=== PATIENT | female | born 1960 | race Caucasian/White ===

== ENCOUNTER 2018-03-28 22:27 | Inpatient (IN) | payer BC ==
[2018-03-28 22:57] LABS: #Basophils 0.1 thou/uL (0.0-0.2); #Eosinphils 0.1 thou/uL (0.0-0.7); #Lymphocytes 3.2 thou/uL (1.20-3.40); #Monocytes 0.5 thou/uL (0.11-0.59); #Neutrophils 3.8 thou/uL (1.40-6.50); %Basophils 1.3 % (0.0-1.0); %Eosinophils 1.7 % (0.0-10.0); %Lymphocytes 41.4 % (21.0-51.0); %Monocytes 6.5 % (0.0-10.0); %Neutrophils 49.2 % (42.0-75.0); Hemoglobin 11.7 g/dL (12.0-16.0); Mean Corpuscular HGB CONC 34.6 g/dL (32.0-36.0); Mean Corpuscular Volume 98.3 fL (78.0-98.0); Mean Platelet Volume 8.1 fL (7.4-10.4); Platelet Count 185 thou/uL (130-400); RBC Distribution Width 11.9 % (11.5-14.5); Red Blood Cell (RBC) Count 3.44 mill/uL (4.20-5.40); White Blood Cell (WBC) Count 7.7 thou/uL (4.8-10.8)
[2018-03-28 23:19] LABS: ALT (SGPT) 14 U/L (8-55); AST (SGOT) 25 U/L (5-34); Alkaline Phosphatase 52 U/L (40-150); Anion Gap 12 mmol/L (10-20); BUN (Urea Nitrogen) 10 mg/dL (9.8-20.1); Bilirubin, Total 0.5 mg/dL (0.2-1.2); Calc. Creatinine Clearance 0 mL/min (70-130); Calcium 8.9 mg/dL (7.8-10.44); Carbon Dioxide 23 mmol/L (22-29); Chloride 90 mmol/L (98-107); Estimated GFR-MDRD 83; Globulin 2.9 g/dL (2.4-3.5); Glucose 91 mg/dL (70-105); Potassium 3.9 mmol/L (3.5-5.1); Protein, Total 6.9 g/dL (6.0-8.3); Sodium 121 mmol/L (136-145)
[2018-03-28 23:24] LABS: CKMB 2.6 ng/mL (0-6.6); Troponin I Less than 0.010 ng/mL (< 0.028)
--- NOTE | 2018-03-28 23:45 | RAD ---
PA AND LATERAL CHEST X-RAY: 03/28/18 HISTORY: Chest pain. Patient states left sided rib pain. COMPARISON: 09/10/08. FINDINGS: The cardiac silhouette and pulmonary vasculature are within normal limits. The lungs are expanded but clear. There has been no interval change compared to the prior study. IMPRESSION: No acute cardiopulmonary process. POS: [facility]
[2018-03-28] MEDS ORDERED: Dexamethasone 4 mg/ml Vial ONE (23:53)
[2018-03-29] MEDS ORDERED: Fentanyl 100 MCG/2 ML VIAL ONE (00:34)
[2018-03-29 01:36] VITALS: BMI 20.7
[2018-03-29] MEDS ORDERED: Ondansetron ODT 4 MG TAB SL PRN (01:50)
[2018-03-29] MEDS ORDERED: Ondansetron HCl/PF 4 MG/2 ML Vial IVP PRN (01:50)
[2018-03-29] MEDS ORDERED: Sodium Chloride 0.9% 1,000 ML IV SCH (02:00)
[2018-03-29 02:45] LABS: Troponin I Less than 0.010 ng/mL (< 0.028)
[2018-03-29] MEDS ORDERED: Pepto Bismol Chew TAB PO PRN (02:47)
[2018-03-29] MEDS ORDERED: Milk Of Magnesia 30 ML UDCUP PO PRN (02:47)
[2018-03-29] MEDS ORDERED: Senokot 8.6 MG TAB PO PRN (02:47)
[2018-03-29] MEDS: Ketorolac Tromethamine 30 MG/ML VIAL IVP PRN ×3 (02:47→21:07)
[2018-03-29] MEDS ORDERED: Bisacodyl 5 MG TAB PO PRN (02:47)
[2018-03-29] MEDS ORDERED: Guaifenesin DM 100-10/5 ML UDCUP PO PRN (02:47)
[2018-03-29] MEDS ORDERED: Enoxaparin Sodium 40 MG/0.4 ML SYRINGE SC SCH (03:00)
[2018-03-29 06:38] LABS: Anion Gap 11 mmol/L (10-20); BUN (Urea Nitrogen) 9 mg/dL (9.8-20.1); Calc. Creatinine Clearance 93 mL/min (70-130); Carbon Dioxide 24 mmol/L (22-29); Chloride 96 mmol/L (98-107); Estimated GFR-MDRD 88; Glucose 125 mg/dL (70-105); Sodium 127 mmol/L (136-145)
[2018-03-29 06:39] LABS: Troponin I Less than 0.010 ng/mL (< 0.028)
[2018-03-29 07:04] LABS: Potassium 4.2 mmol/L (3.5-5.1)
[2018-03-29] MEDS ORDERED: Aspirin 325 MG TAB PO SCH (09:00)
[2018-03-29] MEDS: Famotidine/PF 20 mg/2ml Vial SLOW IVP SCH ×2 (09:09→21:07)
--- NOTE | 2018-03-29 09:09 | HP ---
CHIEF COMPLAINT: Left chest pain. HISTORIAN: The patient, rekha. HISTORY OF PRESENT ILLNESS: This is a 57-year-old white female with a past medical history of umbili bear hernia, thoracic bulging disks, GERD, presenting with left-sided lower rib pain that radiates to the patient's back. Per patient, this pain has always been there and has recurrent pain which progre ssively got worse this morning. The patient states that she has history of chronic left rib pain for which she is seeing a pain doctor for. Per the patient, she was given a lot of different treatments . She received nerve blocks and numerous pain medications which alleviated her pain for some time an d the patient states that she lost her insurance and due to that she never went back to her pain medi cation doctor and now she is starting to get the pain again. The patient describes the pain as sharp , constant. The patient received [place] which helped a little bit with the pain. The patient has tri ed a little bit of Tylenol as well. On the pain scale the patient rated the pain as 9/10. REVIEW OF SYSTEMS: The patient states that she has positive left-sided rib pain which is reproducibl e, back pain. Otherwise, as documented in the HPI. All other systems are reviewed and are negative. PAST MEDICAL HISTORY: Umbilical hernia, PVCs, PACs, 3 thoracic bulging disks, gastroesophageal reflu x disease, hypertension. FAMILY HISTORY: Reviewed and noncontributory to this hospital visit. PAST SURGICAL HISTORY: Breast augmentation and implant removal, carpal tunnel surgery, cholecystecto my, hysterectomy. SOCIAL HISTORY: The patient lives at home. Denies tobacco use and alcohol use. Denies any other il licit drug use. PSYCHIATRIC HISTORY: There is no previous psychiatric history. ALLERGIES: Patient is allergic to BYSTOLIC. The patient does not know how she feels when she takes Bystolic because she states that the allergic reaction was a long time ago. CURRENT MEDICATIONS: 1. Atenolol 25 mg b.i.d. 2. Aspirin 81 mg oral daily. 3. Omeprazole 40 mg daily. 4. Bentyl 20 mg t.i.d. 5. Lexapro 10 mg oral daily. 6. Xanax 0.5 mg t.i.d. PHYSICAL EXAMINATION: VITAL SIGNS: Blood pressure 162/85, pulse 58, respiratory rate 18, temperature is 98, O2 sat 100 on room air. GENERAL APPEARANCE: The patient is sitting in bed, does not appear in any distress. Patient is spea franc in full sentences. Denies any pain at the time. HEENT: Normocephalic, atraumatic. Pupils equally round and reactive to light. Extraocular movement s are intact. No scleral icterus. NECK: No JVD. Trachea is midline, supple. Mucous membranes are moist. LUNGS: Clear to auscultation bilaterally. Reproducible tenderness at the left lateral rib and thora cic spine. No wheezing, no rales, no rhonchi. ABDOMEN: Nontender, nondistended. Positive bowel sounds in all quadrants. No ecchymosis. No palpa ble masses. BACK: Tenderness at the thoracic spine. EXTREMITIES: Upper extremities; upper extremity strength 5/5, lower extremity strength, good pulses bilaterally of upper extremities and lower extremities. NEUROLOGIC: Cranial nerves II-XII grossly intact. No focal neurologic deficits noted. SKIN: Warm, dry and intact. PSYCHIATRIC: Alert, oriented x3, normal affect. EKG shows left atrial enlargement, sinus bradycardia. ED COURSE: The patient was given normal saline, aspirin, Decadron injection. Chest x-ray which was ordered showed no acute cardiopulmonary process. LABORATORY DATA: WBC 7.7, hemoglobin 11.7, hematocrit 33.8, platelets 185. D-dimer less than 0.25. Electrolytes: Sodium 121, potassium 3.9, chloride is 90, creatinine is 0.72, BUN is 10, anion gap i s 12. Carbon dioxide is 23, glucose is 91. Serum osmolality is 252, AST 25, ALT 14, alkaline phosph atase 52. Creatinine at 94. CK-MB 2.6, troponins less than 0.010 x3. Urine osmolality is 119. Uri ne spot sodium is 38. ASSESSMENT AND PLAN: This is a 57-year-old female presenting with: 1. Left-sided musculoskeletal pain. The patient has been given pain medication. At this point we w ill continue pain medication for the patient. Troponins x2 have been negative. The patient has been advised to follow up with her pain management physician after discharge. 2. Hyponatremia, most likely secondary to syndrome of inappropriate antidiuretic hormone secretion, the patient is euvolemic with sodium of 121. Urine spot osmol is 119, urine spot sodium is 38. At t his point, the patient has been fluid restricted. Basic metabolic panel has been ordered q.8h. Neph rology has been consulted. We will continue to fluid restrict the patient at 1000 mL and we will mon itor the patient's sodium closely. Repeat sodium this morning is 127. We will continue to monitor t he patient closely. 3. Chronic back and left thoracic pain. We will continue the patient on pain medication. 4. History of hypertension. We will monitor the patient's blood pressure closely. We will give pat ient blood pressure medication as needed. 5. History of gastroesophageal reflux disease. At this point, the patient denies any GERD like symp toms. We will continue the patient on Pepcid prophylaxis. 6. Disposition: We will follow the patient's sodium until sodium is corrected to about 130 and then the patient can be discharged home.
[2018-03-29 09:25] LABS: Troponin I Less than 0.010 ng/mL (< 0.028)
[2018-03-29 10:53] LABS: Anion Gap 15 mmol/L (10-20); BUN (Urea Nitrogen) 9 mg/dL (9.8-20.1); Calc. Creatinine Clearance 89 mL/min (70-130); Calcium 9.6 mg/dL (7.8-10.44); Carbon Dioxide 22 mmol/L (22-29); Chloride 94 mmol/L (98-107); Estimated GFR-MDRD 83; Glucose 125 mg/dL (70-105); Sodium 126 mmol/L (136-145)
[2018-03-29 19:11] LABS: Anion Gap 13 mmol/L (10-20); BUN (Urea Nitrogen) 14 mg/dL (9.8-20.1); Calc. Creatinine Clearance 83 mL/min (70-130); Calcium 9.3 mg/dL (7.8-10.44); Carbon Dioxide 21 mmol/L (22-29); Chloride 99 mmol/L (98-107); Estimated GFR-MDRD 77; Glucose 89 mg/dL (70-105); Potassium 4.4 mmol/L (3.5-5.1); Sodium 129 mmol/L (136-145)
[2018-03-29] MEDS ORDERED: Dextrose 5% in Water 1,000 ML IV SCH (22:00)
--- NOTE | 2018-03-29 23:07 | CON ---
DATE OF CONSULTATION: 03/29/2018 REASON FOR CONSULTATION: Hyponatremia. HISTORY OF PRESENT ILLNESS: This is a very pleasant 57-year-old female who presented to the hospital with weakness and was noted to have sodium of 121, so I was consulted at 11:00 a.m. today. The patient was started on normal saline and her sodium corrected to 127. PAST MEDICAL HISTORY: Significant for rib pain, PVCs, bulging disk, GERD, hypertension, . PAST SURGICAL HISTORY: Significant for breast augmentation, implant removal, carpal tunnel surgery, cholecystectomy, hysterectomy. SOCIAL HISTORY: No alcohol use. FAMILY HISTORY: Negative for ESRD. ALLERGIES: Reviewed. HOME MEDICATIONS: List reviewed. PAST MEDICAL/SURGICAL HISTORY: Depression, and migraines. REVIEW OF SYSTEMS: A 15-point review of systems was performed and negative except all noted above. GENERAL: Weakness- HEAD: Headache- NECK: No swelling or lumps. NOSE: No epistaxis or discharge. EYES: No diplopia or pain. RESPIRATORY: Dyspnea- CARDIOVASCULAR: Chest pain- GASTROINTESTINAL: Nausea- /CHILD CUSTODY EVALUATOR: Hematuria- MUSCULOSKELETAL: No joint pain. NEUROPSYCHIATIC SYSTEMS: No suicidal ideation. No ideation. SKIN: Denies any rash or ulcer. CONSTITUTIONAL: No fever or chills. OBJECTIVE: See above. GENERAL: Patient is awake, alert. VITAL SIGNS: Afebrile, pulse 60, breathing 16, blood pressure 130/77. GENERAL APPEARANCE AND MENTAL STATUS: Fair. HEAD/NECK: Normocephalic. Atraumatic. EYES: EOMI. No deformity. EARS: Clear. No ulcers. NOSE: Intact. No lesions. MOUTH: Clear. No discharge. THROAT: Clear. No exudate. LUNGS: Clear. No crackles. CARDIAC: S1, S2. No rub. ABDOMEN: Benign. BS+. GENITALIA/RECTUM: Samuel absent. BACK/EXTREMITIES: Edema 0+ Ulcer- NEUROLOGICAL: Alert and motor intact. SKIN: Rash- Bruise- LYMPHATICS: Edema- Ulcer. LABORATORY DATA: Sodium osmolality is 252. Sodium is 127, creatinine 0.7. Urine osmolality is 119. ASSESSMENT AND RECOMMENDATIONS: 1. Hyponatremia, acute, most likely because of excessive fluid intake. We will follow serial sodium and avoid fluid restriction. 2. Anemia, stable. 3. Hypertension, stable. 4. Medications based on glomerular filtration rate are appropriate. MTDD
[2018-03-30] MEDS: Famotidine/PF 20 mg/2ml Vial SLOW IVP SCH (08:54)
--- NOTE | 2018-03-30 09:36 | ULT ---
SONOGRAM KIDNEYS: Date: 03/30/18 HISTORY: Acute renal insufficiency. FINDINGS: Right kidney is 11.1 cm and left is 9.8 cm. Each has a normal sonographic appearance without evidence of mass, stone, or hydronephrosis. Urinary bladder is unremarkable. Left ureteral jet visualized. Ri ght jet not seen. Liver is diffusely echogenic. IMPRESSION: 1. No evidence of urinary tract obstruction or other acute abnormality. 2. Hepatosteatosis. POS: [facility]
[2018-03-30 10:08] LABS: Anion Gap 11 mmol/L (10-20); BUN (Urea Nitrogen) 14 mg/dL (9.8-20.1); Calc. Creatinine Clearance 79 mL/min (70-130); Calcium 9.3 mg/dL (7.8-10.44); Carbon Dioxide 27 mmol/L (22-29); Chloride 94 mmol/L (98-107); Estimated GFR-MDRD 77; Glucose 82 mg/dL (70-105); Potassium 4.4 mmol/L (3.5-5.1); Sodium 128 mmol/L (136-145)
--- NOTE | 2018-03-30 10:38 | PRG ---
DATE OF SERVICE: 03/30/2018 SUBJECTIVE: This is a 57-year-old female being seen for hyponatremia. The patient denies any nausea , vomiting or chest pain. PHYSICAL EXAMINATION: GENERAL: Patient is awake, alert. VITAL SIGNS: Afebrile, pulse 52, breathing 16, blood pressure 109/66. HEAD/NECK: Normocephalic. Atraumatic. EYES: EOMI. No deformity. EARS: Clear. No ulcers. NOSE: Intact. No lesions. MOUTH: Clear. No discharge. THROAT: Clear. No exudate. LUNGS: Clear. No crackles. CARDIAC: S1, S2. No rub. ABDOMEN: Benign. BS+. GENITALIA/RECTUM: Samuel absent. BACK/EXTREMITIES: Edema 0+ Ulcer- NEUROLOGICAL: Alert and motor intact. SKIN: Rash- Bruise- LYMPHATICS: Edema- Ulcer- LABORATORY DATA: Show sodium was 129 yesterday, today sodium is pending. ASSESSMENT AND PLAN: 1. Hyponatremia acute most likely because of syndrome of inappropriate antidiuretic hormone secretio n. We will follow this patient's sodium closely. 2. Hypertension, stable. 3. Medications based on glomerular filtration rate are appropriate.
[2018-03-30] MEDS ORDERED: HYDROcodone/Acetaminophen 5/325 mg Tablet PO PRN (13:32)
[2018-03-30] MEDS ORDERED: Non-Formulary Item 1 EACH (Amlodipine Besylate [Norvasc] 2.5 MG) PO PRN (13:32)
[2018-03-30] MEDS ORDERED: Amlodipine 5 MG TAB PO PRN (13:52)
[2018-03-30] MEDS: ALPRAZolam 0.5 MG TAB PO SCH ×2 (14:57→14:58)
[2018-03-30 15:03] VITALS: BP 142/76; TEMP 97.6
--- NOTE | 2018-03-30 15:37 | DIS ---
DATE OF ADMISSION: 03/29/2018 DATE OF DISCHARGE: 03/30/2018 PRIMARY CARE PHYSICIAN: Dameon Giles M.D. OUTSIDE UPHOLSTERER: Chandler Sloan M.D. DISCHARGE DIAGNOSES: 1. Hyponatremia. 2. Probable syndrome of inappropriate antidiuretic hormone secretion. 3. Premature ventricular contractions and premature atrial contractions. 4. Degenerative disk disease. 5. Gastroesophageal reflux disease. 6. Essential hypertension. CONSULTATIONS: Dr. Sloan with Nephrology. PROCEDURES: None. HISTORY AND PHYSICAL: Ms. Mckinley is a 57-year-old female with history of chronic back issues, GERD an d hypertension, complaining of left-sided lower rib pain that radiates to her back. Workup in the em ergency department revealed sodium of 121. We were subsequently called for admission. HOSPITAL COURSE: The patient was seen and examined by Dr. Perez and placed in observation status. Nephrology was consulted. The patient was placed on fluid restriction. Basic metabolic panels were ordered. Urine osmol was 119 with urine spot sodium of 38, so certainly was in renal losses. Nephrology recommended continued management. Overnight 03/29/2018 to 03/30/2018, sodium stabilized o ut 128-129 range, I spoke with Dr. Sloan. The patient had a primary care physician appointment first thing tomorrow morning on 03/31/2018 for repeat BMP and to continue fluid restriction and cleared her for discharge. PHYSICAL EXAMINATION: The patient was seen and examined on the day of discharge. Discharge plan and disposition discussed with patient face to face at bedside. DISCHARGE MEDICATIONS: 1. Xanax 0.5 mg p.o. t.i.d. 2. Amlodipine 2.5 mg p.o. daily. 3. Aspirin 81 mg daily. 4. Atenolol 25 mg p.o. b.i.d. 5. Bentyl 20 mg p.o. daily. 6. Lexapro 5 mg daily. 7. hydrocodone/APAP 5/325 one p.o. as needed for pain. 8. Mag oxide 400 mg daily. 9. Multivitamin daily. 10. Omeprazole 40 mg daily. FOLLOWUP APPOINTMENTS: 1. Dr. Dameon Giles, first thing in the morning. 2. Dr. Sloan in 1-2 weeks. DISCHARGE CONDITION: Stable. DISPOSITION: Discharged home via private car. DISCHARGE DIET: Heart healthy nonsodium restricted diet recommended. DISCHARGE ACTIVITY: Per cardiopulmonary limits.
[2018-03-30] MEDS ORDERED: Atenolol 25 MG TAB PO SCH (21:00)
[2018-03-31] MEDS ORDERED: Aspirin 81 mg Enteric Coated Tablet PO SCH (09:00)
[2018-03-31] MEDS ORDERED: Non-Formulary Item 1 EACH (Omeprazole [Omeprazole] 40 MG) PO SCH (09:00)
[2018-03-31] MEDS ORDERED: Escitalopram Oxalate 10 mg Tablet PO SCH (09:00)
[2018-03-31] MEDS ORDERED: Dicyclomine 20 MG TAB PO SCH (09:00)
[2018-03-31] MEDS ORDERED: Magnesium Oxide 400 MG TAB PO SCH (09:00)
[2018-03-31] MEDS ORDERED: Multivit, Therapeutic 1 TAB PO SCH (09:00)
== END 2018-03-30 15:34 | disposition home or self-care (01) | DRG 556 ==
LOC: ERS 22:27 → 2NO 03-29 00:01
PROVIDERS: ADMIT Internal Medicine; ATTEND Internal Medicine
DX: M79.1 Myalgia (principal); E22.2 Syndrome of inappropriate secretion of antidiuretic hormone; K21.9 Gastro-esophageal reflux disease without esophagitis; I10 Essential (primary) hypertension; M54.6 Pain in thoracic spine; G89.29 Other chronic pain; I49.3 Ventricular premature depolarization; D64.9 Anemia, unspecified; Z79.82 Long term (current) use of aspirin
CPT/HCPCS: 36415; 71046; 76770; 80048; 80053; 82553; 83930; 83935; 84300; 84484; 85025; 85379; 93005; J1100; J1650; J1885; J3010; S0028

== ENCOUNTER 2018-06-02 11:15 | Outpatient (CLI) | payer BC ==
--- NOTE | 2018-06-02 12:47 | RAD ---
LEFT RIBS TWO VIEWS STANDARD: History: Rib pain, R7.81 Comparison: None. FINDINGS: No displaced left sided rib fracture. Left lung is relatively clear. Mild degenerative disease of the left acromioclavicular joint. IMPRESSION: No displaced left sided rib fracture. POS: [facility]
== END 2018-06-02 11:16 | disposition home or self-care (01) ==
LOC: BICRAD 11:15
PROVIDERS: ATTEND Physician Assistant Medical
DX: K21.9 Gastro-esophageal reflux disease without esophagitis (principal); K58.9 Irritable bowel syndrome, unspecified; K76.0 Fatty (change of) liver, not elsewhere classified; R07.81 Pleurodynia; R11.0 Nausea

== ENCOUNTER 2019-04-02 06:45 | Emergency (ER) | payer BC ==
[2019-04-02 07:54] LABS: ALT (SGPT) 10 U/L (8-55); AST (SGOT) 18 U/L (5-34); Albumin 4.1 g/dL (3.5-5.0); Alkaline Phosphatase 59 U/L (40-150); Anion Gap 12 mmol/L (10-20); BUN (Urea Nitrogen) 13 mg/dL (9.8-20.1); Bilirubin, Total 0.2 mg/dL (0.2-1.2); Calc. Creatinine Clearance 0 mL/min (70-130); Calcium 9.2 mg/dL (7.8-10.44); Carbon Dioxide 24 mmol/L (22-29); Chloride 104 mmol/L (98-107); Estimated GFR-MDRD 72; Globulin 2.7 g/dL (2.4-3.5); Glucose 109 mg/dL (70-105); Magnesium 1.8 mg/dL (1.6-2.6); Potassium 3.6 mmol/L (3.5-5.1); Protein, Total 6.8 g/dL (6.0-8.3); Sodium 136 mmol/L (136-145)
[2019-04-02 09:25] LABS: Bilirubin Negative (Negative); Blood, Urine Negative (Negative); Clarity Clear (Clear); Glucose, Urine (Dipstick) Normal (Negative); Leukocyte Negative Leu/uL (Negative); Nitrite Negative (Negative); Protein, Urine (Dipstick) Negative (Neg-Trace); Urobilinogen Normal mg/dL (Less than 2)
== END 2019-04-02 10:16 | disposition home or self-care (01) ==
LOC: ERS 06:45
DX: I49.3 Ventricular premature depolarization (principal); I10 Essential (primary) hypertension; K21.9 Gastro-esophageal reflux disease without esophagitis; Z79.82 Long term (current) use of aspirin; Z79.899 Other long term (current) drug therapy
CPT/HCPCS: 80053; 81003; 83735; 84443; 84484; 93005; 96360

== ENCOUNTER 2020-08-26 19:19 | Emergency (ER) | payer BC | END 2020-08-26 20:38 | disposition home or self-care (01) | LOC: ERS 19:19 | DX: R00.2 Palpitations (principal); K21.9 Gastro-esophageal reflux disease without esophagitis; I10 Essential (primary) hypertension; F17.210 Nicotine dependence, cigarettes, uncomplicated; Z79.82 Long term (current) use of aspirin; Z79.899 Other long term (current) drug therapy | CPT/HCPCS: 93005 ==